=== PATIENT | female | born 1975 | race Caucasian/White ===

== ENCOUNTER 2017-07-05 11:40 | Emergency (ER) | payer OTHER ==
[2017-07-05] MEDS: ALBUTEROL SULFATE 2.5 MG/3 ML NEBU. NEB (12:29)
[2017-07-05 12:48] LABS: INFLUENZA A PATIENT NEGATIVE (NEGATIVE); INFLUENZA B PATIENT NEGATIVE (NEGATIVE); OBC FLU VALID
== END 2017-07-05 13:04 | disposition home or self-care (01) ==
LOC: ER 13:04
DX: J40 Bronchitis, not specified as acute or chronic (principal); Z88.5 Allergy status to narcotic agent
CPT/HCPCS: 87804; 87804-59; 94640; 99283-25; 99284-25; J7613